=== PATIENT | female | born 1990 | race Two or more races ===

== ENCOUNTER 2025-02-23 08:09 | Emergency (ER) | payer BC, SELFPAY ==
[2025-02-23 08:10] VITALS: BMI 27.3
[2025-02-23 08:16] VITALS: BP 116/75; PULSE 76; RESP 18; TEMP 36.7; O2SAT 99
[2025-02-23] MEDS: DiphenhydrAMINE ELIX 25 MG/10 ML UDC PO (08:45)
[2025-02-23] MEDS: DEXAMETHASONE SOD PHOS INJ 10 MG/ML VIAL PO (08:45)
[2025-02-23] MEDS: FAMOTIDINE 20 MG TABLET PO (08:45)
--- NOTE | 2025-02-23 08:45 | EDNOTE_ITS ---
<Statement entered by Emma Quinonez MD - 03/10/25 06:32> As co-signing physician, I was present and available for consult prn. I concur with the plan and care as documented by the midlevel provider. ED Skin Abcess FB-RME/HPI General Chief complaint: Skin/Abscess/Foreign Body Stated complaint: GENERALIZED BLISTERS, SPREADING Time Seen by Provider: 02/23/25 08:23 Source: patient Arrival date/time: 02/23/25 08:09 34-year-old female with no known medical history presents to the emergency room with a chief complaint of generalized blisters in her left hand that is spread to her abdomen Mode of arrival: ambulatory Limitations: no limitations Related Data Home Medications ?Medication ?Instructions ?Recorded ?Confirmed prenat.vits,elise,[id number] 1 tab PO QDAY 09/03/20 09/04/20 Previous Rx's ?Medication ?Instructions ?Recorded docusate sodium 100 mg capsule 100 mg PO QDAY #60 caps 09/12/20 (DOK) ferrous sulfate 325 mg (65 mg 325 mg PO BID #60 tabs 0 09/12/20 iron) tablet,delayed release hydrocodone 5 mg-acetaminophen 325 1 tab PO Q4HR PRN p ain PRN #20 tabs 09/12/20 mg tablet ibuprofen 400 mg tablet 800 mg (2 x 400 mg) PO Q8HR PRN 09/12/20 Pain Scale 4-6 (Moderate #60 tabs Allergies Allergy/AdvReac Type Severity Reaction Status Date / Time No Known Allergies Allergy Verified 02/23/25 08:12 Review of Systems Review of Systems Systems Reviewed: All systems reviewed, normal except as documented Constitutional Constitutional: Reports system reviewed and no additional complaints, except as documented, Denies fatigue, Denies fever(s), Denies headache(s) and Denies weakness Eyes Eyes: Reports system reviewed and no additional complaints, except as docum ented, Denies blurry vision and Denies change in vision ENT Ears, Nose, Mouth, and Throat: Reports system reviewed and no additional complaints, except as documented, Denies otalgia, Denies headache(s), Denies nasal congestion, Denies throat swelling and Denies vertigo Cardiovascular Cardiovascular: Reports system reviewed and no additional complaints, except as documented, Denies chest pain, Denies dyspnea and Denies dyspnea on exertion Respiratory Respiratory: Reports system reviewed and no additional complaints, except as documented, Denies chest congestion, Denies cough, Denies dyspnea, Denies dyspnea on exertion and Denies wheezing Gastrointestinal Gastrointestinal: Reports system reviewed and no additional complaints, except as documented, Denies abdominal pain, Denies cramping, Denies nausea and Denies vomiting Genitourinary Genitourinary: Reports system reviewed and no additional complaints, except as documented Musculoskeletal Musculoskeletal: Reports system reviewed and no additional complaints, except as documented and Denies back pain Integumentary/Breasts Skin/Breast: Reports system reviewed and no additional complaints, except as documented, Reports rash and Denies wounds Neurologic Neurologic: Reports system reviewed and no additional complaints, except as documented, Denies confusion, Denies headache(s), Denies lack of coordination, Denies vertigo and Denies weakness Psychiatric Psychiatric: Reports system reviewed and no additional complaints, except as documented, Denies anxiety, Denies confusion, Denies depression, Denies paranoia, Denies suicidal ideation and Denies tactile hallucinations Endocrine Endocrine: Reports system reviewed and no additional complaints, except as documented and Denies fatigue Hematologic/Lymphatic Hematologic/Lymphatic: Reports system reviewed and no additional complaints, except as documented and Denies lymphadenopathy Allergic/Immunologic Allergic/Immunologic: Reports system reviewed and no additional complaints, except as documented, Denies throat swelling, Denies urticaria and Denies wheezing Past Medical History Past Medical History NEUROLOGIC: Negative Neurological Disorders or Seizures CARDIAC: Negative Cardiac Disorders or Congestive Heart Failure RESPIRATORY: Negative Chronic Obstructive Pulmonary Disease (COPD) GASTROINTESTINAL: Negative Gastrointestinal Disorders GENITOURINARY: Negative Genitourinary Disorders or Renal Disease MUSCULOSKELETAL: Negative Musculoskeletal Disorders ENDOCRINE: Negative Endocrine Disorders, Diabetes Mellitus Type 1 or Diabetes Mellitus Type 2 HEMATOLOGIC: Negative Blood Disorders or Clotting Problems OTHER HISTORY: Positive Hospitalization (labor), Falls and Blood Transfusions; Negative Autoimmune Disease, Blood Transfusion Reaction, Anesthesia Reactions or Cancer Family History FAMILY HISTORY: Negative Family Psychiatric Problems, Family Respiratory Disorders, Family Cardiac Disorders, Family Gastrointestinal Problems, Family Cancer, Family Surgery or Family Anesthesia Reaction Surgical History SURGICAL: Positive Section; Negative Cardiac Surgery or Endocrine Surgery Social History SMOKING STATUS: Never smoker ED Exam General Limitations: Present no limitations General appearance: Present alert and in no apparent distress Head Head exam: Present atraumatic Eye Eye exam: Present normal appearance, PERRL and EOMI ENT ENT exam: Present normal exam, normal oropharynx and mucous membranes moist Neck Neck exam: Present normal inspection, full ROM and trachea midline Chest Chest inspection: Present normal inspection and symmetric chest wall rise Respiratory Respiratory exam: Present normal lung sounds bilaterally Cardiovascular Cardiovascular exam: Present regular rate, normal rhythm and normal heart sounds Abdominal Exam Abdominal exam: Present soft and normal bowel sounds Extremities Exam Extremities exam: Present normal inspection and full ROM Back Exam Back exam: Present normal inspection and full ROM Neurological Exam Neurological exam: Present alert, oriented X3 and CN II-XII intact Psychiatric Psychiatric exam: Present normal affect and normal mood Skin Skin exam: Present warm, dry, intact, normal color and rash Expanded Skin Exam Type of lesion: Present rash Distribution: Present generalized, involves palms/soles and abdomen Description: Present papular and blisters Course Quality Measures none Orders Category Date Time Status Dexamethasone Inj [Decadron Inj] Med 02/23/25 08:32 Discontinued 10 mg PO X1 ONE DiphenhydrAMINE [Benadryl] Med 02/23/25 08:32 Discontinued 25 mg PO X1 ONE Famotidine [Pepcid] Med 02/23/25 08:32 Discontinued 20 mg PO X1 ONE Vital Signs Vital signs: Vital Signs Temperature 98.1 F 02/23/25 08:16 Pulse Rate 76 02/23/25 08:16 Respiratory Rate 18 02/23/25 08:16 Blood Pressure 116/75 02/23/25 08:16 Pulse Oximetry (%) 99 02/23/25 08:16 Oxygen Delivery Method Room Air 02/23/25 08:16 Skin / Abscess / Foreign Body MDM Narrative MDM Narrative:: 34-year-old female with no known medical history presents to the emergency room with a chief complaint of generalized blisters in her left hand that is spread to her abdomen Patient is hemodynamically stable and in no apparent distress Physical examination shows a rash to her hand arm and abdomen. The rash is firm round bumps and the findings are consistent with molluscum contagiosum. The patient has clear bilateral lung sounds with no wheezing stridor or any abnormal breath sounds. The patient denies any throat swelling tongue swelling or difficulty breathing Patient was discharged and educated to follow-up with primary care provider in the next 24 to 48 hours and return to the emergency room for any evidence of worsening signs or symptoms Patient data External records reviewed:: [facility] previous records Clinical information provided by:: patient Social determinants that could affect healthcare access:: none Patient has the following chronic illnesses:: No chronic illness How is presenting disease/condition affected by chronic disease/condition?: no chronic disease Evaluation data The following diagnostics were reviewed and interpreted by me:: lab results and radiology exam(s) Lab and/or radiology exams considered but not ordered:: Labs and radiology exams considered and ordered Interpretation Summary: N/A Medications / Prescriptions Medications or Prescriptions considered but not ordered:: Medication given Medication administrations:: Medication Administration History Discontinued Medications Dexamethasone Sodium Phosphate (Dexamethasone Sod Phos Inj 10 Mg/Ml Vial) 10 mg PO X1 ONE Stop: 02/23/25 08:33 Diphenhydramine HCl (Diphenhydramine Elix 25 Mg/10 Ml Udc) 25 mg PO X1 ONE Stop: 02/23/25 08:33 Famotidine (Famotidine 20 Mg Tablet) 20 mg PO X1 ONE Stop: 02/23/25 08:33 Medication given Consultations Consultation(s) initiated? (list below): No Diagnosis Skin/Abscess Differential Diagnosis: cellulitis, insect bites, contact dermatitis and other (Molluscum contagiosum) Most likely diagnosis given after review of the tests above:: Molluscum contagiosum Admission Indicated Admission indicated?: not indicated Admission Request Was there a request for admission?: No Disposition Plan Disposition Plan: Discharge Discharge Attestation Discharge Attestation: The patient and all family members were given an opportunity to ask questions and understood the discharge instructions. Discharge instructions specifically effects, indications for sooner follow up or return to the emergency department, and the expected course of current diagnosis. Patient condition: Stable Discharge Plan Plan Patient Disposition: HOME (Self Care) Discharge Disposition comment: Stable Prescriptions/Referrals Prescriptions/Med Rec: No Action hydrocodone-acetaminophen 5-325 mg Tablet 1 tab PO Q4HR MDD 6 pills PRN (Reason: pain PRN) Qty: 20 0RF ibuprofen 400 mg Tablet 800 mg PO Q8HR PRN (Reason: Pain Scale 4-6 (Moderate) Qty: 60 0RF docusate sodium [DOK] 100 mg Capsule 100 mg PO QDAY Qty: 60 0RF ferrous sulfate 325 mg (65 mg iron) tablet,delayed release (DR/EC) 325 mg PO BID Qty: 60 0RF prenat.vits,elise,[id number] Tablet 1 tab PO QDAY Problem List Clinical Impression: Molluscum contagiosum Patient/Caregiver Discharge Instructions Education Materials: Understanding Molluscum Contagiosum, ED Molluscum Contagiosum (Adult) Additional Instructions: Please follow-up with your primary care provider in the next 24 to 48 hours If your signs and symptoms continue a referral to a auto radiator mechanic will be indicated for further management For any evidence of worsening signs or symptoms return to the emergency room immediately Print Language: Hungarian Stand Alone Forms: [employer]ka Award Info., Patient Portal Info Letter PA/VP COMMUNICATIONS Supervising Physician PA/VP COMMUNICATIONS Supervising Physician: Dr. QUINONEZ
== END 2025-02-23 08:49 | disposition home or self-care (01) ==
PROVIDERS: Emergency Provider Emergency Medicine; PCP Family Medicine
DX: B08.1 Molluscum contagiosum (principal)
CPT/HCPCS: 99283; J1100; A9270